=== PATIENT | female | born 1995 | race Caucasian/White ===

== ENCOUNTER → 2022-08-21 18:52 | Outpatient (BNVA) | payer OTHER, SELFPAY | PROVIDERS: Family Provider Nurse Practitioner Family; Visit Provider Family Medicine | DX: R09.81 Nasal congestion (principal) | CPT/HCPCS: 87400 ==

== ENCOUNTER → 2022-11-07 12:02 | Outpatient (BNVA) | payer OTHER, SELFPAY | PROVIDERS: Family Provider Nurse Practitioner Family; Visit Provider Nurse Practitioner Family | DX: R68.89 Other general symptoms and signs (principal) | CPT/HCPCS: 87804 ==

== ENCOUNTER → 2023-06-05 18:40 | Outpatient (BNVA) | payer OTHER, SELFPAY | PROVIDERS: Family Provider Nurse Practitioner Family; Visit Provider Registered Nurse Neonatal Intensive Care | DX: R39.9 Unspecified symptoms and signs involving the genitourinary system (principal) | CPT/HCPCS: 81000 ==

== ENCOUNTER → 2023-11-23 09:35 | Outpatient (BNVA) | payer OTHER, SELFPAY | PROVIDERS: Family Provider Nurse Practitioner Family; Visit Provider Nurse Practitioner Family | DX: R68.89 Other general symptoms and signs | CPT/HCPCS: 87804 ==

== ENCOUNTER 2024-03-03 10:23 | Emergency (ER) | payer OTHER, SELFPAY ==
[2024-03-03 11:01] VITALS: BP 118/87; PULSE 83; RESP 18; TEMP 36.9; O2SAT 98; BMI 26.2
[2024-03-03 11:36] VITALS: BP 120/83; PULSE 98; RESP 16; O2SAT 99
--- NOTE | 2024-03-03 11:41 | ED_ITS ---
HPI - Nausea/Vomiting/Diarrhea 2 General: Chief complaint: Nausea/Vomiting/Diarrhea Stated complaint: n,v, 15 weeks preg Time Seen by Provider: 03/03/24 11:25 Source: patient Mode of arrival: ambulatory Limitations: no limitations History of Present Illness: 28-year-old female is currently 15 weeks states she has had issues with vomiting throughout the she has taken Zofran with minimal relief states today she has been vomiting more than typical is feeling dehydrated she denies any pain denies any fevers denies any dysuria. Associated nausea: Yes Associated symtoms: Reports nausea; Denies chest pain, dysuria or headache(s) Review of Systems 2 Const: Denies: fever(s), chills, body aches or change in appetite ENMT: Denies: throat pain or dental pain Card: Denies: chest pain Resp: Denies: dyspnea GI: Reports: nausea and vomiting; Denies: abdominal pain or diarrhea : Denies: dysuria Musc: Denies: neck pain or back pain Skin/Breast: Denies: rash Neuro: Denies: headache(s) Psych: Denies: depression Fidel/Lymph: Denies: easy bruising All/Imm: Denies: urticaria PFSH ED 2 PFSH: Medical History No significant past medical history Surgical History (Updated 11/07/22 @ 12:12 by Keerthi Smith NP) H/O wisdom tooth extraction Social History Smoking and tobacco/nicotine status: never used tobacco/nicotine Second hand smoke exposure: No Alcohol intake: current Alcohol intake frequency: holidays/special occasions only Substance/Drug Use: never Physical Exam 2 Const: COMMON NORMALS: no acute distress, patient oriented x3 and healthy appearing HENMT: COMMON NORMALS: normocephalic and atraumatic HEAD & SCALP: n ormocephalic and atraumatic Eye: COMMON NORMALS: Equal, round and reactive pupils present and EOMs intact bilaterally PUPIL: Yes Equal, round and reactive pupils present Neck/C-Spine: COMMON NORMALS: full ROM and supple Chest: COMMONS NORMALS: normal inspection of the chest Resp: COMMON NORMALS: normal respiratory effort, No retractions, No use of accessory muscles and clear to auscultation bilaterally AUSCULTATION: clear to auscultation bilaterally Cardio: COMMON NORMALS: regular rate, regular rhythm and No murmurs present (Cardio) RATE: regular rate RHYTHM: regular rhythm GI: COMMON NORMALS: Normal to inspection, nondistended, normoactive bowel sounds present, Soft to palpation, non-tender and no masses PALPATION: Yes Soft to palpation Extremity: COMMON NORMALS: normal to inspection and full ROM Neuro: COMMON NORMALS: patient oriented x3, moves all extremities and no focal motor deficits Psych: COMMON NORMALS: mental status grossly normal, Normal thought process present and cooperative THOUGHT PROCESS: Normal thought process present Skin: COMMON NORMALS: no rashes or lesions noted and no wounds GENERAL SKIN EXAM: no rashes or lesions noted Course 2 Vital Signs: Vital signs: Vital Signs Temperature 98.5 F 03/03/24 11:01 Pulse Rate 93 03/03/24 13:30 Respiratory Rate 16 03/03/24 13:30 Blood Pressure 108/70 03/03/24 13:30 Pulse Oximetry 100 03/03/24 13:30 Oxygen Delivery Me thod Room Air 03/03/24 13:30 MDM - Nausea/Vomiting/Diarrhea Medical Decision Making Patient presents with hyperemesis gravidarum she does feel improved here after fluids and Reglan. She has a slight UTI we will start her on antibiotics we will discharge on Reglan as well she is to follow-up with her OB return if worsening she had no related complaints. Medical Records I reviewed the patient's medical records. Lab Data I reviewed the patient's lab results. 03/03/24 11:58 03/03/24 11:58 Laboratory Results WBC 14.99 10^3/uL (3.29-11.43) H 03/03/24 11:58 RBC 4.69 10^6/uL (3.85-5.65) 03/03/24 11:58 Hgb 14.50 g/dL (11.27-16.99) 03/03/24 11:58 Hct 40.9 % (36-47) 03/03/24 11:58 MCV 87.2 fl (85-98) 03/03/24 11:58 MCH 30.9 pg (27-33) 03/03/24 11:58 MCHC 35.5 g/dL (30-55) 03/03/24 11:58 RDW 12.6 % (12.1-15.1) 03/03/24 11:58 Plt Count 377 10^3/cmm (157-399) 03/03/24 11:58 MPV 9.8 fL (7.4-10.4) 03/03/24 11:58 Neut % (Auto) 86.6 % 03/03/24 11:58 Lymph % (Auto) 8.2 % 03/03/24 11:58 Stevens % (Auto) 4.3 % 03/03/24 11:58 Eos % (Auto) 0.1 % 03/03/24 11:58 Baso % (Auto) 0.5 % 03/03/24 11:58 Neut # (Auto) 12.98 10^3/uL (1.8-7.7) H 03/03/24 11:58 Lymph # (Auto) 1.2 10^3/uL (0.8-4.8) 03/03/24 11:58 Stevens # (Auto) 0.7 10^3/uL (0.2-0.9) 03/03/24 11:58 Eos # (Auto) 0.0 10^3/uL (0.0-0.8) 03/03/24 11:58 Baso # (Auto) 0.1 10^3/uL (0.0-0.1) 03/03/24 11:58 Nucleated RBC % (auto) 0 % 03/03/24 11:58 Nucleated RBCs # 0.0 /100WBC 03/03/24 11:58 Sodium 133 mmol/L (136-145) L 03/03/24 11:58 Potassium 4.2 mmol/L (3.5-5.1) 03/03/24 11:58 Chloride 98 mmol/L (98-107) 03/03/24 11:58 Carbon Dioxide 19 mmol/L (22-29) L 03/03/24 11:58 Anion Gap 20.2 (5-19) H 03/03/24 11:58 BUN 8 mg/dL (6-20) 03/03/24 11:58 Creatinine 0.6 mg/dL (0.5-0.9) 03/03/24 11:58 GFR Calculation 119.9 mL/min (90-130) 03/03/24 11:58 Glucose 68 mg/dL (65-115) 03/03/24 11:58 Calculated Osmolality 273 mOsm/kg (285-295) L 03/03/24 11:58 Calcium 9.2 mg/dL (8.5-10.5) 03/03/24 11:58 Total Bilirubin 0.4 mg/dL (0.15-1.2) 03/03/24 11:58 AST 15 U/L (0-32) 03/03/24 11:58 ALT 10 U/L (0-33) 03/03/24 11:58 Alkaline Phosphatase 51 U/L (35-105) 03/03/24 11:58 Total Protein 7.5 g/dL (6.6-8.7) 03/03/24 11:58 Albumin 3.8 g/dL (3.5-5.2) 03/03/24 11:58 Globulin 3.7 g/dL (1.3-4.6) 03/03/24 11:58 Urine Color Yellow (Yellow) 03/03/24 11:50 Urine Appearance Slightly cloudy (CLEAR) 03/03/24 11:50 Urine pH 6 (5-7) 03/03/24 11:50 Ur Specific Rigg[place] 1.025 (1.005-1.030) 03/03/24 11:50 Urine Protein 1+ (Negative) H 03/03/24 11:50 Urine Glucose (UA) Norm (Normal) 03/03/24 11:50 Urine Ketones 3+ (Negative) H 03/03/24 11:50 Urine Blood Neg (Negative) 03/03/24 11:50 Urine Nitrate Negative (Negative) 03/03/24 11:50 Urine Bilirubin Neg (Negative) 03/03/24 11:50 Urine Urobilinogen Neg mg/dL (Negative) 03/03/24 11:50 Ur Leukocyte Esterase 1+ (Negative) H 03/03/24 11:50 Urine RBC 0-4 /hpf (0-2) H 03/03/24 11:50 Urine WBC 40-55 /hpf (0-5) H 03/03/24 11:50 Ur Squamous Epith Cells 5-10 /hpf (0-5) H 03/03/24 11:50 Uric Acid Crystals 0-4 /hpf 03/03/24 11:50 Amorphous Sediment Not Reportable 03/03/24 11:50 Urine Bacteria 2+ /hpf (NONE) H 03/03/24 11:50 Urine Mucus Trace /hpf 03/03/24 11:50 No radiology studies performed this visit Discharge Plan Discharge Patient Disposition: Home Clinical Impression: Hyperemesis gravidarum, UTI (urinary tract infection) Condition: Stable Prescriptions: New Reglan 10 mg tablet 10 mg PO Q6H PRN (Reason: nausea and vomiting) Qty: 20 0RF cephalexin 500 mg capsule 500 mg PO TID 7 Days Qty: 21 0RF No Action Claritin Liqui-Gel 10 mg capsule 10 mg PO DAILY PRN (Reason: allergies) ondansetron 8 mg tablet,disintegrating See Rx Instructions .ROUTE .COMPLEX Rx Instructions: DISSOLVE 1 TABLET IN MOUTH (PLACE ON TOP OF TONGUE WHERE IT WILL DISSOLVE AND SWALLOW WITH SALIVA) EVERY 8 HOURS FOR 7 DAYS Vitamin B-6 50 mg Tablet 50 mg PO DAILY Discharge Orders: Discharge ED (Routine); Ordered 03/03/24 Ordered By: Salomón Covington Referrals: Suzanne Modi APN [Primary Care Provider] - 1-3 days Discharge Diet: Advance as tolerated Discharge Activity: Resume usual activity Patient Instructions: Hyperemesis Gravidarum (ED) Coding Level of Care Code ED Nipple Maker for Lakhwinder Nayak
[2024-03-03 12:04] VITALS: BP 117/78; PULSE 120; RESP 16; O2SAT 100
[2024-03-03 12:04] LABS: Glucose Urine UA Norm (Normal); Protein Urine 1+ (Negative); Specific Gravity, Urine 1.025 (1.005-1.030); Urine Appearance Slightly Cloudy (CLEAR); Urine Color Yellow (Yellow); pH Urine 6 (5-7)
[2024-03-03 12:05] LABS: Add Urine Microscopic? YES; Bilirubin Urine Neg (Negative); Blood Urine Neg (Negative); Ketones Urine 3+ (Negative); Leukocyte Esterase Urine 1+ (Negative); Nitrate Urine Negative (Negative); Urobilinogen Urine Neg (Negative)
[2024-03-03] MEDS: diphenhydrAMINE 50 mg/mL SDV 1mL IVP (12:05)
[2024-03-03] MEDS: metoclopramide 5 mg/mL SDV 2 mL 10 MG IVP (12:05)
[2024-03-03 12:06] LABS: RBC Urine 0-4 /hpf (0-2); WBC Urine 40-55 /hpf (0-5)
[2024-03-03 12:06] LABS: Basophils # 0.1 10^3/uL (0.0-0.1); Basophils % 0.5 %; Eosinophils % 0.1 %; Hematocrit 40.9 % (36-47); Lymphocytes # 1.2 10^3/uL (0.8-4.8); Lymphocytes % 8.2 %; Mean Corpuscular HGB Conc 35.5 g/dL (30-55); Mean Corpuscular Hemoglobin 30.9 pg (27-33); Mean Corpuscular Volume 87.2 fl (85-98); Mean Platelet Volume 9.8 fL (7.4-10.4); Monocytes # 0.7 10^3/uL (0.2-0.9); Monocytes % 4.3 %; Neutrophils # 12.98 10^3/uL (1.8-7.7); Neutrophils % 86.6 %; Nucleated Red Blood Cells % 0 %; Platelet Count 377 10^3/cmm (157-399); Red Blood Count 4.69 10^6/uL (3.85-5.65); Red Cell Distribution Width 12.6 % (12.1-15.1); White Blood Count 14.99 10^3/uL (3.29-11.43)
[2024-03-03 12:07] LABS: Bacteria Urine 2+ /hpf
[2024-03-03 12:11] LABS: Add Urine Culture? Yes; Mucus Urine TRACE /hpf; Uric Acid Crystals Urine 0-4 /hpf
[2024-03-03] MEDS: sodium chloride 0.9% 1,000 ML 999 ML IV ×2 (12:12→12:35)
[2024-03-03 12:18] LABS: Alanine Aminotransferase 10 U/L (0-33); Albumin Level 3.8 g/dL (3.5-5.2); Alkaline Phosphatase 51 U/L (35-105); Aspartate Amino Transferase 15 U/L (0-32); Blood Urea Nitrogen 8 mg/dL (6-20); Calcium 9.2 mg/dL (8.5-10.5); Carbon Dioxide 19 mmol/L (22-29); Chloride 98 mmol/L (98-107); Creatinine Clr Calc Pharmacy 117.9948; Globulin 3.7 g/dL (1.3-4.6); Glomerular Filtration Rate 119.9 mL/min (90-130); Glucose 68 mg/dL (65-115); Osmolality Calculated 273 mOsm/kg (285-295); Sodium 133 mmol/L (136-145); Total Bilirubin 0.4 mg/dL (0.15-1.2); Total Protein 7.5 g/dL (6.6-8.7)
[2024-03-03 12:19] LABS: Anion Gap 20.2 (5-19); Potassium 4.2 mmol/L (3.5-5.1)
[2024-03-03 12:30] VITALS: BP 124/81; PULSE 99; RESP 16; O2SAT 100
[2024-03-03 13:00] VITALS: BP 108/71; PULSE 90; RESP 16; O2SAT 100
[2024-03-03 13:30] VITALS: BP 108/70; PULSE 93; RESP 16; O2SAT 100
== END 2024-03-03 14:08 | disposition home or self-care (01) ==
PROVIDERS: Physician Assistant; Emergency Provider Emergency Medicine; PCP Nurse Practitioner Family
DX: O21.0 Mild hyperemesis gravidarum (principal); O23.42 Unspecified infection of urinary tract in pregnancy, second trimester; N39.0 Urinary tract infection, site not specified; Z3A.15 15 weeks gestation of pregnancy
CPT/HCPCS: 80053; 81001; 85025; 87086; 96361; 96374; 96375; 99284; J1200; J2765; J7030

== ENCOUNTER 2025-04-17 20:45 | Emergency (ER) | payer OTHER, SELFPAY ==
--- OUTSIDE RECORDS SUMMARY | 2025-04-17 20:50 | XMS_ITS | Patient Health Record ---
Author Organization [facility] Address [address] [place] [address] Care Team Providers Care Residency Program Coordinator Name Role Phone MARCOS, [facility] Primary Care Provider Formerly [facility] Unavailable [phone] Allergies No Known Allergies Reason For Referral No Information Medications Medication SIG (Take, Route, Frequency, Duration) Notes Start Date End Date Status Claritin 10 MG Tablet 1 tablet Orally On ce a day Active hydrOXYzine HCl 50 MG Tablet TAKE 1/2 TO 1 (ONE-HALF TO ONE) TABLET BY MOUTH TWICE DAILY NEEDED FOR ANXIETY; Duration: 23 Active Social History Tobacco Use: Social History Observation Description Date Details (start date - stop date) Never Smoker NA - NA Social History Depression Screening Social Info Question Answer Notes PHQ-9 Little interest or pleasure in doing thin gs Not at all Feeling down, depressed, or hopeless Not at all Trouble falling or staying asleep, or sleeping t oo much Not at all Feeling tired or having little energy Not at all Poor appetite or overeating Not at all Feeling bad about yourself, or that you are a failure, or have let yourself or your family down Not at all Trouble concentrating on thi ngs, such as reading the newspaper or watching television Not at all Moving or speaking so slowly that other people could have noticed. Or the opposite ? being so fidgety or restless that you have been moving around a lot more than usual Not at all Thoughts that you would be b shahzad off , or of hurting yourself in some way Not at all Total Score 0 Drugs/Alcohol: Social Info Question Answer Notes Alcohol Screen (Audit-C) Did you have a drink containing alcohol in the past year? No Points 0 Interpretation Negative Drugs Have you used drugs other than those for medical reasons in the past 12 months? No Tobacco Use: Social Info Question Answer Notes xTobacco Use/Smoking Are you a nonsmoker Additional Details Category Social Info Options Details Drugs/Alcohol: Do you smoke marijuana? De nies Do you drink alcohol? No Section Notes: 09-19-22 PHQ9 11/27/2022 PHQ-9 Problems Problem Type SNOMED Code ICD Code Onset Dates Problem Status W/U Status Risk Notes Problem Migraine with aura (1870332) Migraine with aura, not intractable, without status migrainosus (G43.109) Active confirmed Problem Amenorrhea (36508339) Amenorrhea, unspecified (N91.2) Active confirmed Problem Gastroesophageal reflux disease without esophagitis (951602075) Gastroesophageal reflux disease without esophagitis (K21.9) Active confirmed Problem Anxiety (26345482) Anxiety (F41.9) Active confi rmed Problem Fatigue (19910150) Fatigue, unspecified type (R53.83) Active confirmed Problem Sinusitis (69386921) Sinusitis (J32.9) Active confirmed Problem Acute frontal sinusitis (10793885) Acute non-recurrent frontal sinusitis (J01.10) Active confirmed Problem Environmental allergy (101494083) Environmental allergies (Z91.09) Active confirmed Problem Irregular menstruation (57619312) Menstrual changes (N92.6) Active confirmed Plan Of Treatment No Information Insurance Providers Payer Name Payer Address Payer Phone Subscriber Number Group Number Insured Name Patient Relationship to Insured Coverage Start Date Coverage End Date [employer] [address] [place] [address] [id number] Dona Coon Self - patient is the insured Medications Administered Medication Instructions Date of Administration Dosage Notes DEPO-Medrol 02/13/2022 40 mg [facility] [id number] 3-1 pt tolerated well/instructed to wait 20 min dexAMETHasone 02/13/2022 [place] [id number] 39-30 pt tolerated well/instructed to wait 20 min Medical (General) History Medical History History ICD Code anemia migraine headaches Surgical History Surgery Date(Month/Year) wisdom teeth extraction Hospitalization History Reason Date(Month/Year) shiga toxin
[2025-04-17 20:54] VITALS: BP 135/82; PULSE 71; RESP 16; TEMP 36.3; O2SAT 96; BMI 28.7
[2025-04-17 22:15] LABS: Hematocrit 41.1 % (36-47); Hemoglobin 14.60 g/dL (11.27-16.99); Mean Corpuscular HGB Conc 35.5 g/dL (30-55); Mean Corpuscular Hemoglobin 30.8 pg (27-33); Mean Corpuscular Volume 86.7 fl (85-98); Nucleated Red Blood Cells % 0 %; Platelet Count 415 10^3/cmm (157-399); Red Blood Count 4.74 10^6/uL (3.85-5.65); White Blood Count 18.90 10^3/uL (3.29-11.43)
[2025-04-17 22:38] LABS: Alanine Aminotransferase 12 U/L (0-33); Albumin Level 4.5 g/dL (3.5-5.2); Alkaline Phosphatase 62 U/L (35-105); Anion Gap 17.9 (5-19); Aspartate Amino Transferase 16 U/L (0-32); Blood Urea Nitrogen 9 mg/dL (6-20); Calcium 9.6 mg/dL (8.5-10.5); Carbon Dioxide 26 mmol/L (22-29); Chloride 98 mmol/L (98-107); Creatinine Clr Calc Pharmacy 109.6689; Globulin 3.3 g/dL (1.3-4.6); Glucose 112 mg/dL (65-115); Osmolality Calculated 285 mOsm/kg (285-295); Potassium 3.9 mmol/L (3.5-5.1); Sodium 138 mmol/L (136-145); Total Protein 7.8 g/dL (6.6-8.7)
[2025-04-17 23:00] VITALS: BP 134/88; PULSE 76; RESP 22; O2SAT 100
[2025-04-17 23:36] VITALS: RESP 22
[2025-04-17 23:36] LABS: HCG Qualitative Urine. Negative (Negative)
[2025-04-17] MEDS: morphine 4 mg/mL SDV 1 mL IVP (23:36)
[2025-04-17] MEDS: ondansetron 2 mg/ML SDV 2 mL 4 MG IVP (23:36)
--- NOTE | 2025-04-17 23:47 | CTR_ITS ---
PROCEDURE INFORMATION: Exam: CT Abdomen And Pelvis With Contrast Exam date and time: 04/17/2025 11:54 PM Age: 29 years old Clinical indication: Pain and abnormal findings; Abnormal lab test; Elevated wbc; Abdominal pain; Localized; Right lower quadrant (rlq); Prior surgery; Surgery date: 6+ months; Surgery type: Csection; Rlq pain with wbc of 18k. ; Additional info: Rlq pain, 18k wbc concern for appy TECHNIQUE: Imaging protocol: Computed tomography of the abdomen and pelvis with contrast. Radiation optimization: All CT scans at this facility use at least one of these dose optimization techniques: automated exposure control; mA and/or kV adjustment per patient size (includes targeted exams where dose is matched to clinical indication); or iterative reconstruction. Contrast material: OMNI 350; Contrast volume: 100 ml; Contrast route: INTRAVENOUS (IV); COMPARISON: CT abdomen pelvis w con* [id number] 03/10/2019 2:00 PM RADIATION DOSE METRICS: Total DLP (mGy-cm): 378.7 FINDINGS: Liver: No discrete liver lesions are apparent. Smooth hepatic contour. Gallbladder and biliary ducts: No gallbladder distension or inflammation. No calcified gallstones are apparent. No common bile duct abnormality is evident. Pancreas: No evidence of pancreatitis. No ductal dilation. Spleen: Spleen is within normal limits. Adrenal glands: Adrenal glands are within expected limits. Kidneys and ureters: Distal right ureteral 7 mm calculus near the UVJ with moderate proximal ureterectasis and pelvicaliectasis. Left kidney is within normal limits allowing for phase of enhancement. Stomach and bowel: Small bowel is normal caliber. No obstruction. Large bowel within normal limits. No inflammatory wall thickening or abnormal bowel dilatation. Appendix: Appendix is clearly visualized and appears normal. Intraperitoneal space: Trace pelvic free fluid, nonspecific and possibly physiologic. Vasculature: No abdominal aortic aneurysm. Lymph nodes: No pathologically enlarged lymph nodes by CT size criteria. Urinary bladder: Unremarkable as visualized. Reproductive: Unremarkable as visualized. Bones/joints: No acute osseous abnormalities. Bilateral L5 pars defects. Soft tissues: Unremarkable. CT/CT abdomen pelvis w con* [id number] IMPRESSION: 1. Negative for appendicitis. 2. Distal right ureteral 7 mm calculus with moderate obstructive features.
[2025-04-17] MEDS: iohexol 350 mg/mL 500 mL Btl (per mL) IV (23:55)
[2025-04-17 23:58] LABS: Add Urine Microscopic? YES; Glucose Urine UA Negative (Normal); Nitrate Urine Negative (Negative); Specific Gravity, Urine 1.021 (1.005-1.030)
[2025-04-18] VITALS: BP 120/78; PULSE 98; RESP 18; O2SAT 99
[2025-04-18 01:00] VITALS: BP 125/75; PULSE 77; RESP 16; O2SAT 96
[2025-04-18] MEDS: piperacillin-tazobactam 3.375 GM in sodium chloride 0.9% (plus) 50 ML IV (01:35)
[2025-04-18 02:51] VITALS: RESP 17
[2025-04-18] MEDS: oxyCODONE-APAP 5-325 mg Tablet 1 TAB PO (02:51)
[2025-04-18] MEDS: ondansetron hcl ODT 4 mg Tab PO (02:51)
[2025-04-18 03:02] VITALS: BP 122/78; PULSE 85; RESP 15; O2SAT 96
--- NOTE | 2025-04-18 06:01 | W.ED.ABDPA2 ---
HPI - Abdominal Pain General: Chief Complaint: Abdominal Pain Stated Complaint: Lower R ABD Pain going up and down ABD Time Seen by Provider: 04/17/25 23:27 History of Present Illness: Kailey Grossman is a 29 yo F with no prior kidney stones who awoke this morning with bilateral flank discomfort that became intermittent. Pain abruptly intensified while rising from the floor, localizing to the right flank and then the right lower quadrant. She describes the pain as stabbing and worse than labor pain. Associated symptoms include nausea and at least one episode of emesis. She denies dysuria, hematuria, or fever. Pain is unaffected by position or movement. Home test reportedly negative. Initial triage temperature 97.4 ?F; other vital signs stable. WBC 18.9 K. ROS otherwise negative for urinary or systemic complaints. No known drug allergies. Related Data Date of Last Menstrual Period: 04/11/25 Home Medications ?Medication ?Instructions ?Recorded ?Confirmed loratadine 10 mg capsule (Claritin 10 mg PO DAILY PRN allergies 11/23/23 03/12/25 Liqui-Gel) vitamin#30 30 mg iron-10 1 cap PO DAILY 03/12/25 03/12/25 mg iron-folic acid 1 mg-omg3 capsule Previous Rx's ?Medication ?Instructions ?Recorded ketorolac 10 mg tablet 10 mg PO Q8H PRN pain (scale score 04/18/25 4-6) #30 tabs ondansetron 4 mg disintegrating 4 mg PO Q8H PRN nausea and 04/18/25 tablet vomiting #30 tabs oxycodone-acetaminophen 5 mg-325 1 tab PO Q6H PRN pain (scale score 04/18/25 mg tablet (Percocet) 7-10) #30 tabs Allergies Allergy/AdvReac Type Severity Reaction Status Date / Time No Known Allergies Allergy Verified 04/17/25 20:58 PFSH ED PFSH: Medical History No significant past medical history Surgical History H/O wisdom tooth extraction Social History Smoking and tobacco/nicotine status: never used tobacco/nicotine Second hand smoke exposure: No Alcohol intake: current Alcohol intake frequency: holidays/special occasions only Substance/Drug Use: never Female Reproductive History: Date of last menstrual period: 04/11/25 Physical Exam Const: COMMON NORMALS: patient oriented x3 and alert OTHER: Moderate distress due to pain HENMT: COMMON NORMALS: normocephalic and atraumatic HEAD & SCALP: normocephalic and atraumatic Eye: COMMON NORMALS: Equal, round and reactive pupils present, EOMs intact bilaterally and no scleral icterus PUPIL: Yes Equal, round and reactive pupils present Resp: COMMON NORMALS: normal respiratory effort and No retractions Cardio: COMMON NORMALS: regular rate, regular rhythm and No murmurs present (Cardio) RATE: regular rate RHYTHM: regular rhythm GI: COMMON NORMALS: Normal to inspection, nondistended, normoactive bowel sounds present, Soft to palpation and non-tender PALPATION: Yes Soft to palpation OTHER: Abdominal pain is not reproducible with palpation. Neuro: COMMON NORMALS: patient oriented x3 SENSORIUM/ORIENTATION: Yes alert Skin: COMMON NORMALS: no rashes or lesions noted GENERAL SKIN EXAM: no rashes or lesions noted Course Vital Signs: Vital signs: Vital Signs Temperature 97.4 F L 04/17/25 20:54 Pulse Rate 85 04/18/25 03:02 Respiratory Rate 15 04/18/25 03:02 Blood Pressure 122/78 04/18/25 03:02 Pulse Oximetry 96 04/18/25 03:02 Oxygen Delivery Me thod Room Air 04/17/25 20:54 MDM - Abdominal Pain Medical Decision Making CT scan shows the right side of the 7 mm ureteral stone causing hydronephrosis. Urine is not infected. Pain is much better with Toradol and morphine. Nausea is better with the Zofran. She will be discharged home in stable and improved condition with prescriptions for Percocet, Toradol, and Zofran and referral to urology as I suspect she would likely require instrumentation to pass a 7 mm stone. She and family show good understanding and know that she is always welcome back in the emergency department if symptoms get worse before outpatient follow-up. Lab Data 04/17/25 22:01 04/17/25 22:01 Labs/Radiology: Radiology Impressions Abdomen/Pelvis CT 04/17/25 23:47 IMPRESSION: 1. Negative for appendicitis. 2. Distal right ureteral 7 mm calculus with moderate obstructive features. Laboratory Results WBC 18.90 10^3/uL (3.29-11.43) H 04/17/25 22:01 RBC 4.74 10^6/uL (3.85-5.65) 04/17/25 22:01 Hgb 14.60 g/dL (11.27-16.99) 04/17/25 22:01 Hct 41.1 % (36-47) 04/17/25 22: MCV 86.7 fl (85-98) 04/17/25 22: MCH 30.8 pg (27-33) 04/17/25 22: MCHC 35.5 g/dL (30-55) 04/17/25 22: RDW 11.9 % (12.1-15.1) L 04/17/25 22: Plt Count 415 10^3/cmm (157-399) H 04/17/25 22:01 MPV 9.5 fL (7.4-10.4) 04/17/25 22:01 Neut % (Auto) 81.6 % 04/17/25 22: Lymph % (Auto) 12.1 % 04/17/25 22:01 [place] % (Auto) 5.0 % 04/17/25 22:01 Eos % (Auto) 0.3 % 04/17/25 22: Baso % (Auto) 0.5 % 04/17/25 22: Neut # (Auto) 15.43 10^3/uL (1.8-7.7) H 04/17/25 22:01 Lymph # (Auto) 2.3 10^3/uL (0.8-4.8) 04/17/25 22:01 [place] # (Auto) 0.9 10^3/uL (0.2-0.9) 04/17/25 22: Eos # (Auto) 0.1 10^3/uL (0.0-0.8) 04/17/25 22: Baso # (Auto) 0.1 10^3/uL (0.0-0.1) 04/17/25 22:01 Nucleated RBC % (auto) 0 % 04/17/25 22: Nucleated RBCs # 0.0 /100WBC 04/17/25 22:01 Sodium 138 mmol/L (136-145) 04/17/25 22:01 Potassium 3.9 mmol/L (3.5-5.1) 04/17/25 22:01 Chloride 98 mmol/L (98-107) 04/17/25 22:01 Carbon Dioxide 26 mmol/L (22-29) 04/17/25 22: Anion Gap 17.9 (5-19) 04/17/25 22: BUN 9 mg/dL (6-20) 04/17/25 22: Creatinine 0.7 mg/dL (0.5-0.9) 04/17/25 22: GFR Calculation 99.6 mL/min (90-130) 04/17/25 22: Glucose 112 mg/dL (65-115) 04/17/25 22: Calculated Osmolality 285 mOsm/kg (285-295) 04/17/25 22: Calcium 9.6 mg/dL (8.5-10.5) 04/17/25 22: Total Bilirubin 0.3 mg/dL (0.15-1.2) 04/17/25 22: AST 16 U/L (0-32) 04/17/25 22: ALT 12 U/L (0-33) 04/17/25 22: Alkaline Phosphatase 62 U/L (35-105) 04/17/25 22: Total Protein 7.8 g/dL (6.6-8.7) 04/17/25 22: Albumin 4.5 g/dL (3.5-5.2) 04/17/25 22: Globulin 3.3 g/dL (1.3-4.6) 04/17/25 22: HCG, Qual Negative (Negative) 04/17/25 22: Urine Color Yellow (Yellow) 04/17/25 22: Urine Appearance Cloudy (CLEAR) A 04/17/25 22: Urine pH 6.5 (5-7) 04/17/25 22: Ur Specific [place] 1.021 (1.005-1.030) 04/17/25 22: Urine Protein 2+ (Negative) A 04/17/25 22: Urine Glucose (UA) Negative (Normal) 04/17/25 22: Urine Ketones Negative (Negative) 07/18/25 22:01 Urine Blood 3+ (Negative) A 04/17/25 22:01 Urine Nitrate Negative (Negative) 04/17/25 22:01 Urine Bilirubin Negative (Negative) 04/17/25 22:01 Urine Urobilinogen 1.0 mg/dL (Negative) 04/17/25 22:01 Ur Leukocyte Esterase Negative (Negative) 04/17/25 22:01 Urine RBC >100 /hpf (0-2) H 04/17/25 22:01 Urine WBC 6-10 /hpf (0-5) 04/17/25 22:01 Ur Squamous Epith Cells 0-5 /hpf (0-5) 04/17/25 22:01 Amorphous Sediment Not Reportable 04/17/25 22:01 Urine Bacteria 1+ /hpf (NONE) H 04/17/25 22:01 Hyaline Casts 1.65 /lpf 04/17/25 22:01 All radiology interpretation(s) finalized by discharge Discharge Plan Discharge Patient Disposition: Home Condition: Stable Prescriptions: New oxycodone-acetaminophen [Percocet] 5-325 mg tablet 1 tab PO Q6H PRN (Reason: pain (scale score 7-10)) Qty: 30 0RF ketorolac 10 mg tablet 10 mg PO Q8H PRN (Reason: pain (scale score 4-6)) Qty: 30 0RF ondansetron 4 mg tablet,disintegrating 4 mg PO Q8H PRN (Reason: nausea and vomiting) Qty: 30 0RF No Action Claritin Liqui-Gel 10 mg capsule 10 mg PO DAILY PRN (Reason: allergies) PNV #[id number] 30 mg iron-10 mg iron-1 mg capsule 1 cap PO DAILY Discharge Orders: Discharge ED (Routine); Ordered 04/18/25 Ordered By: Derrell Smith Referrals: Colby Juarez MD [Referring, Urology] - 4-7 days Referral Note: 7mm right ureteral stone Rian,ABHAY Palacios [Primary Care Provider, Nurse Practitioner] Discharge Diet: Advance as tolerated Discharge Activity: Increase activity as tolerated Patient Instructions: Ureteral Stones (ED), Patient Portal & [facility] Instructions Activity Restrictions/Additional Instructions: As we discussed, you have a 7 mm diameter ureteral stone which more than likely will require urology surgical consultation. Referral has been placed and the urology service should be contacting you. If they have not by Sunday, please call to be seen as soon as feasible. Print Language: Panamanian Coding Level of Care Code ED Trade Recruiter for Lakhwinder Nayak
--- NOTE | 2025-04-20 08:45 | DCPLANNER ---
Referral sent to [facility] -
== END 2025-04-18 03:00 | disposition home or self-care (01) ==
PROVIDERS: Emergency Provider Student in an Organized Health Care Education/Training Program; PCP Nurse Practitioner Family
DX: N13.2 Hydronephrosis with renal and ureteral calculous obstruction (principal)
CPT/HCPCS: 36415; 74177; 80053; 81001; 81025; 85025; 87086; 96365; 96375; 99285; J1885; J2270; J2405; J2543; J7030; J9999; Q0162